=== PATIENT | female | born 1990 | race Caucasian/White ===

== ENCOUNTER 2017-10-29 12:22 | Day surgery (SDC) | payer OTHER ==
[2017-10-29 13:28] VITALS: BMI 40.7
--- NOTE | 2017-10-29 15:10 | CON ---
DATE OF CONSULTATION: 10/29/2017 PRIMARY OB: Clinic. CHIEF COMPLAINT: Fall. HISTORY OF PRESENT ILLNESS: The patient is a 26-year-old G4, P3 female with an intrauterine pregnanc y at 24 weeks and 4 days, who is followed by the clinic. She reports at work this morning, she fell at around 7:50 on some ice and slit to her left side. She reports she landed on her hip and her shoulder. The patient proceeded to work and at lunchtime went to the emergency room for evaluat ion where she was subsequently cleared and brought to labor and delivery. The patient reports that s alia feels fine. She denies any uterine contractions. She denies any bleeding or leakage of fluid. S he reports her last visit with the clinic was 6-8 weeks ago and she missed her previous appo intment. The patient denies any recent illness, headache, fever, chest pain, shortness of breath, na usea, vomiting. The patient does report a new rash coming on her arms. Denies any vaginal bleeding, leakage of fluid or urinary problems. OB LABS: Unavailable. OBSTETRIC HISTORY: The patient reports she has had 3-term deliveries without complication. PAST SURGICAL HISTORY: Negative. SOCIAL HISTORY: Denies drug, alcohol or tobacco use. ALLERGIES: No known drug allergies. MEDICATIONS: vitamins. REVIEW OF SYSTEMS: Per HPI. PHYSICAL EXAMINATION: VITAL SIGNS: Blood pressure 117/73, heart rate of 97, respiratory rate of 18. GENERAL: She appears to be in no acute distress. She is alert and oriented, and cooperative and ple asant to interact with. HEENT: Normocephalic, atraumatic. LUNGS: Clear to auscultation bilaterally. HEART: Regular rate and rhythm. ABDOMEN: Soft. She does have some tenderness to palpation along that left side in the right lateral region, her shoulder, and her hip. Fundus is nontender. Lower abdomen is nontender to palpation. EXTREMITIES: Nontender, nonedematous. GENITOURINARY: Has been deferred. heart tracing performed for fall at 24 weeks. Baseline is noted to be in the 140s with moderat e long-term variability, appropriate for 24 weeker, no contractions visible on the monitor. ASSESSMENT AND PLAN: The patient is a 26-year-old female status post a fall approximately 6 hours ag o. She is not having any contractions felt or seen and tracing is reassuring for gestational age. T he patient is being discharged to home with labor precautions. She has been given instructio agusto to call the clinic to make a routine appointment. She is overdue.
== END 2017-10-29 14:10 | disposition home or self-care (01) ==
LOC: ERS 12:22 → SDC 13:06
PROVIDERS: ATTEND Obstetrics & Gynecology
DX: Z04.3 Encounter for examination and observation following other accident (principal); Z3A.24 24 weeks gestation of pregnancy; Z91.81 History of falling
CPT/HCPCS: 59025; 99283

== ENCOUNTER 2017-11-30 08:19 | Emergency (ER) | payer OTHER ==
--- NOTE | 2017-11-30 09:57 | RAD ---
7 VIEWS RIGHT KNEE: Date: 11/30/17 INDICATION: History of fall with right knee pain. FINDINGS: No acute fracture or subluxation is evident. No joint capsular distention is evident. IMPRESSION: The right knee appears radiographically normal. POS: [facility]
--- NOTE | 2017-11-30 09:59 | RAD ---
3 VIEWS LEFT ANKLE: Date: 11/30/17 INDICATION: Fall with left ankle pain. COMPARISON: None. FINDINGS: There is soft tissue swelling overlying the lateral aspect of the ankle. Ankle mortise and talar dome are preserved. No displaced fracture is grossly evident. There is a very subtle transverse lucency i nvolving the lateral malleolus with suspicion for mild cortical disruption seen predominantly on the AP and mortise views. The remaining visualized left hindfoot appears within normal limits. IMPRESSION: 1. Nondisplaced lateral malleolar fracture. 2. Soft tissue swelling overlying the lateral malleolus. POS: [facility]
[2017-11-30] MEDS ORDERED: Acetaminophen 500 MG TAB ONE (10:48)
[2017-11-30] MEDS ORDERED: Bacitracin Zinc 1 Packet ONE (10:48)
== END 2017-11-30 10:56 | disposition home or self-care (01) ==
LOC: ERS 08:19
DX: O9A.212 Injury, poisoning and certain other consequences of external causes complicating pregnancy, second trimester (principal); S82.832A Other fracture of upper and lower end of left fibula, initial encounter for closed fracture; W19.XXXA Unspecified fall, initial encounter

== ENCOUNTER 2018-02-19 04:38 | Inpatient (IN) | payer OTHER ==
[2018-02-19 05:13] VITALS: BMI 41.1
[2018-02-19] MEDS ORDERED: Ondansetron HCl/PF 4 MG/2 ML Vial IVP PRN ×2 (05:41→12:22)
[2018-02-19] MEDS ORDERED: Promethazine HCl 25 MG/ML VIAL IM PRN (05:41)
[2018-02-19] MEDS ORDERED: Acetaminophen 500 MG TAB PO PRN (05:41)
--- NOTE | 2018-02-19 05:53 | PDOC.LDHP ---
Labor and Delivery H&P Chief complaint: contractions, other (Bloody show) HPI: 27 yo @ 40.6 weeks dated by LMP c/w 12wk US comes in after waking up and having ctx. Ctx have been regular and 5 minutes apart. Also reports when going to the bathroom noting a large amount of bloody flow. Has since resolved. Denies any urinary sx's. Denies any loss of fluid or water breaking. No other complication during . No other complications with other deliveries. Reports having some swelling in her feet. Current gestational age (weeks): 40 (6 days) Due date: 02/13/18 Dating criteria: last menstrual period, first trimester ultrasound Grav: 4 Para: 3 OB History Details: GERD Obesity Current complications: none Abnormal US findings: No Past Medical History: None Current medications: pre-bebe vitamins Previous surgical history: none Allergies/Adverse Reactions: Allergies Allergy/AdvReac Type Severity Reaction Status Date / Time No Known Drug Allergies Allergy Verified 10/29/17 13:27 Social history: none - Physical Exam Vital signs reviewed and normal: yes Abnormal vital signs: Blood pressures elevated not in severe range General: NAD, breathing through contractions Heart: RRR Lungs: CTAB Abdomen: gravid Extremeties: trace edema FHT: category 1, variability present [place] contractions every: 6 minutes - Vaginal Exam cm dilated: 4 Effacement: 75% Station: -3 - OB Labs Blood type: O RH: positive Antibody Screen: negative HIV: negative RPR: negative HEPSAg: negative 1 hour GCT: negative GBS: negative Urine drug screen: not done Rubella: immune Additional Labs: G&C negative - Assessment L&D Assessment: term patient in labor - Plan Plan: admit to L&D, labor augmentation if indicated -: Term @ 40.6 weeks presents in Labor -/-3. Ctx every 6 minutes. FHT 145. Accels present Category 1 strip. -Will admit to L&D. Will continue to monitor. Will recheck in a few hours and consider augmentation of labor at that time with pitocin -Would like epidural for pain. Feeling ctx well at this time Elevated BP -BP on admision 140/80. Other BP 130/80. Will continue to watch -May consider CBC, CMP and urine pr/cr. will check if BP continue to be elevated
[2018-02-19] MEDS ORDERED: Bupivacaine 0.5% 20 ML, fentaNYL Citrate/PF 400 MCG in Sodium Chloride 0.9% 72 ML EPIDURAL SCH (06:45)
[2018-02-19] MEDS: Lactated Ringer's 1,000 ML IV SCH ×3 (07:00→12:59)
[2018-02-19 07:04] LABS: Hemoglobin 11.2 g/dL (12.0-16.0); Mean Corpuscular HGB CONC 33.3 g/dL (32.0-36.0); Mean Corpuscular Hemoglobin 28.9 pg (27.0-31.0); Mean Corpuscular Volume 86.8 fl (81.0-99.0); Mean Platelet Volume 9.1 fL (7.4-10.4); Platelet Count 140 thou/uL (130-400); RBC Distribution Width 14.3 % (11.5-14.5); Red Blood Cell (RBC) Count 3.86 mill/uL (4.20-5.40); White Blood Cell (WBC) Count 7.1 thou/uL (4.8-10.8)
[2018-02-19 07:36] LABS: HBSAg Index 0.24 S/CO (0-0.99); Hep B Surf Ag Non-Reactive S/CO (NonReactive); Syphilis Antibody Nonreactive (Nonreactive); Syphilis Antibody Index 0.04 S/CO (<1.00 Non-Reactive)
--- NOTE | 2018-02-19 08:51 | PDOC.LDPN ---
Labor & Delivery Progress Note - Subjective Subjective: comfortable - Objective Vital signs reviewed and normal: yes General: NAD, resting, breathing through contractions Uterine fundus: palpable contractions Dilation: 8 Effacement: 75% Station: -2 FHT: category 1, variability present, absent or minimal variables [place] contractions every: 5 AROM: meconium stained fluid - Assessment (1) Term Code(s): Z34.80 - ENCOUNTER FOR SUPRVSN OF NORMAL , UNSP TRIMESTER Current Visit: Yes Status: Acute Comment: Pt in active labor. Epidural in place. AROM was peformed with mec stained fluid, will make lisette team aware of delivery. Pt progressing well without augmentation. Will recheck in 2 hours. Continuous monitoring. Position change and other interventions as indicated by status. Will consider pit pending contractions and rate of change. <Jimi Heck - Last Filed: 02/19/18 08:50> Attending Addendum - Attending Addendum Date/Time: 02/19/18 1055 I personally evaluated the patient and discussed the management with Dr. Heck I agree with the History, Examination, Assessment and Plan documented above with any addition or exceptions noted below. <Gema Carrero - Last Filed: 02/19/18 10:55>
[2018-02-19] MEDS ORDERED: LR 500 ML/Oxytocin 10 units 500 ML IV SCH (09:01)
--- NOTE | 2018-02-19 11:15 | PDOC.LDPN ---
Labor & Delivery Progress Note - Subjective Subjective: comfortable - Objective Vital signs reviewed and normal: yes General: NAD, breathing through contractions Uterine fundus: non tender Dilation: 8 Effacement: 75% Station: 1+ FHT: category 1, variability present, absent or minimal variables [employer] contractions every: 5min AROM: meconium stained fluid IUPC placed: yes - Assessment (1) Term Code(s): Z34.80 - ENCOUNTER FOR SUPRVSN OF NORMAL , UNSP TRIMESTER Current Visit: Yes Status: Acute Comment: Pt rate of contractions slowed as did her rate of change after epdiural placement. Pit has been started and IUPC placed. On check, head is much more engaged and station has progressed to +1. Head position is OP. Will recheck in 2 hours. Continuous monitoring. Position change and other interventions as indicated by status. Plan: continue plan of care, labor augmentation, pitocin for augmentation <Jimi Heck - Last Filed: 02/19/18 11:12> Attending Addendum - Attending Addendum Date/Time: 02/19/18 [id number] I personally evaluated the patient and discussed the management with Dr. Heck I agree with the History, Examination, Assessment and Plan documented above with any addition or exceptions noted below. <Gema Carrero - Last Filed: 02/19/18 14:28>
[2018-02-19] MEDS ORDERED: Lidocaine 1% (PF) 30 ML VIAL ONE (11:19)
[2018-02-19] MEDS ORDERED: Misoprostol 200 MCG TAB ONE (11:33)
--- NOTE | 2018-02-19 11:58 | PDOC.OPDEL ---
OB Operative/Delivery Note Delivery Dr/Surgeon: Bimal Heck Cotter Pre-Delivery Diagnosis: other (Latent labor, full term) Procedure/Post Delivery Dx: spontaneous vaginal delivery Weeks gestation: 40 (40.6) Anesthesia: epidural - Findings A Sex: male Weight: 3830 kg - 1 min: 8 - 5 min: 9 - Additional Findings/Plan Placenta delivered: spontaneous Repaired Obstetrical Laceration: none Estimated blood loss: 400 Compilations/Other Findings: @ 40.6 weeks delivered a viable M at 1126 on 02/19. Antepartum course was uneventful. A vigorous M was delivered over an intact perineum in the OP position. Anterior shoulder followed by remainder of the body delivered. Nuchal cord x2 was reduced after delivery. Cord was clamped and cut and was handed off to [facility] team as pt had known meconium stained fluid. Cord blood was collected. Placenta delivered intact w/3vv cord at 1131. Fundal massage was performed and fundus was firm. Cervix and vagina were inspected. One 1st degree perineal laceration was noted to be hemostatic w/o repair. Infant was put skin to skin with plan for routine care. APGARS were 8/9 at 1 and 5 min. Patient tolerated delivery well and went to after routine recovery. Post delivery plan: routine recovery <Jimi Heck - Last Filed: 02/19/18 11:54> Attending Addendum - Attending Addendum Date/Time: 02/19/18 1554 I personally evaluated the patient and discussed the management with Drs. Heck and Atilio. I agree with the History, Examination, Assessment and Plan documented above with any addition or exceptions noted below. I was present for and assisted in the entire delivery. 27 yo [id number] underwent uncomplicated on 02/19/18 at 1126. Baby was delivered in JUAN PABLO position with tight nuchal x2, handed off to awaiting [facility] team for thick meconium stained fluid. No lacerations. EBL-400. <Gema Carrero - Last Filed: 02/19/18 14:26>
[2018-02-19] MEDS ORDERED: Bisacodyl 10 MG SUPP PR PRN (12:22)
[2018-02-19] MEDS ORDERED: Lanolin Ointment 7 GM TUBE TOP PRN (12:22)
[2018-02-19] MEDS ORDERED: Milk Of Magnesia 30 ML UDCUP PO PRN (12:22)
[2018-02-19] MEDS ORDERED: Adacel (T-DAP) 0.5 ML VIAL IM ONE (12:22)
[2018-02-19] MEDS ORDERED: Benzocaine/Menthol 20-0.5% 60 ML CAN TOP PRN (12:22)
[2018-02-19] MEDS ORDERED: LR / Pitocin 40 units/1000 ml 1,000 ML IV SCH (12:22)
[2018-02-19] MEDS ORDERED: Preparation H Ointment 28 GM TUBE PR PRN (12:22)
[2018-02-19] MEDS: Ibuprofen 800 MG TAB PO SCH ×2 (12:39→21:32)
[2018-02-19] MEDS: Ferrous Sulfate 325 MG TAB PO SCH (17:51)
[2018-02-19] MEDS: Acetaminophen 325 MG TAB PO PRN (18:45)
[2018-02-19] MEDS: Docusate Calcium (SURFAK) 240 MG CAP PO SCH (21:32)
[2018-02-20 05:28] LABS: Hemoglobin 9.2 g/dL (12.0-16.0); Mean Corpuscular HGB CONC 33.2 g/dL (32.0-36.0); Mean Corpuscular Hemoglobin 29.3 pg (27.0-31.0); Mean Corpuscular Volume 88.2 fl (81.0-99.0); Platelet Count 117 thou/uL (130-400); RBC Distribution Width 14.3 % (11.5-14.5); Red Blood Cell (RBC) Count 3.15 mill/uL (4.20-5.40); White Blood Cell (WBC) Count 6.1 thou/uL (4.8-10.8)
[2018-02-20] MEDS: Ibuprofen 800 MG TAB PO SCH (06:39)
--- NOTE | 2018-02-20 08:09 | PDOC.PP ---
Post Progress Note Post Day #: 1 Subjective: 27 yo delivered a TAGA male at 40.6 weeks gestation. Delivery complicated by mec stained fluid and nuchal cord x2. Mother is doing well this morning with no specific complaints. She states that her bleeding is similar to a normal period. She denies any clots, fever, SOB, chest pain, leg pain. She is working to breast feed only. Pt states that she would like to go home today if possible. PO intake tolerated: yes Flatus: yes Ambulation: yes Vital Signs (12 hours) Temp Pulse Resp 02/20/18 03:50 98.5 F 69 20 02/20/18 00:15 98.5 F 69 20 Weight Weight 108.862 kg - Physical Examination General: NAD Cardiovascular: no m/r/g, RRR Respiratory: clear to auscultation bilaterally Abdominal: + bowel sounds, no distention, appropriately TTP Fundus firm & at: u -2 Extremities: negative homans (B) Neurological: no gross focal deficits Psychiatric: A&Ox3, normal affect Result Diagrams: 02/20/18 05:03 Additional Labs: Post Labs Hep Bs Antigen Non-Reactive S/CO (NonReactive) 02/19/18 06:20 (1) Term delivered Code(s): O80 - ENCOUNTER FOR FULL-TERM UNCOMPLICATED DELIVERY Status: Acute (2) Normal vaginal delivery Code(s): O80 - ENCOUNTER FOR FULL-TERM UNCOMPLICATED DELIVERY Status: Acute - Assessment/Plan s/p - continue routine post care - pt is doing well with good support at home - bleeding is minimal and pain is controlled with motrin - Hb today 9.2. Vitals are normal Dispo: Consider dc this afternoon pending progress throughout the day today. <Jimi Heck - Last Filed: 02/20/18 08:07> Vital Signs (12 hours) Temp Pulse Resp BP 02/20/18 08:31 98.0 F 78 20 124/79 02/20/18 07:45 98.0 F 78 20 02/20/18 03:50 98.5 F 69 20 02/20/18 00:15 98.5 F 69 20 Weight Weight 108.862 kg Result Diagrams: 02/20/18 05:03 Additional Labs: Post Labs Hep Bs Antigen Non-Reactive S/CO (NonReactive) 02/19/18 06:20 <Gema Carrero - Last Filed: 02/20/18 09:55> Attending Addendum - Attending Addendum Date/Time: 02/20/18950 I personally evaluated the patient and discussed the management with Dr. Heck I agree with the History, Examination, Assessment and Plan documented above with any addition or exceptions noted below. 27 yo [id number] PPD# 2 status post uncomplicated at term Doing well this morning. Lochia is mild. Pain controlled. Ambulating without dizziness. Requesting early d/c today. Stable for d/c to home if baby is also ready to go today. nexplanon for PP control. Followup in 2 weeks in [facility] <Gema Carrero - Last Filed: 02/20/18 09:55>
[2018-02-20] MEDS ORDERED: Prenatal Vitamin 1 TAB PO SCH (09:00)
[2018-02-20] MEDS: Docusate Calcium (SURFAK) 240 MG CAP PO SCH (10:52)
[2018-02-20] MEDS: Ferrous Sulfate 325 MG TAB PO SCH (10:52)
[2018-02-20] MEDS: Acetaminophen 325 MG TAB PO PRN (10:52)
[2018-02-20 12:02] VITALS: BP 132/79; TEMP 99.1
== END 2018-02-20 14:55 | disposition home or self-care (01) | DRG 775 ==
LOC: L&D/OP 04:38 → L&D 06:01 → 3SE 14:22
PROVIDERS: ADMIT Family Medicine; ATTEND Family Medicine
PROC: 10E0XZZ Delivery of Products of Conception, External Approach (ICD-10-PCS; principal; 2018-02-19)
PROC: 10907ZC Drainage of Amniotic Fluid, Therapeutic from Products of Conception, Via Natural or Artificial Opening (ICD-10-PCS; 2018-02-19)
PROC: 3E033VJ Introduction of Other Hormone into Peripheral Vein, Percutaneous Approach (ICD-10-PCS; 2018-02-19)
DX: O70.0 First degree perineal laceration during delivery (principal); Z37.0 Single live birth; Z3A.40 40 weeks gestation of pregnancy
CPT/HCPCS: 36415; 51702; 85027; 86780; 87340; 90715; 99285; J2001; J3010; J3490; J7050; J7120